=== PATIENT | male | born 1955 | race Two or more races ===

== ENCOUNTER 2018-07-29 14:30 | Inpatient (IN) | payer OTHER ==
[~2018-07-29] VITALS: Ht 167.6 cm; Wt 72.6 kg
--- NOTE | 2018-07-29 17:15 | NUR ---
RN NOTES RECEIVED PATIENT FROM [facility] VIA GURNEY ACCOMPANIED WITH 2 EMT. PATIENT TRANSFERRED TO BED. WEAKNESS NOTED ON AMBULATION. ALERT AND ORIENTED, ABLE TO MAKE NEEDS KNOW BUT UNDERSTAND AND SPEAKS ONLY IN URDU, EYES NOTED TO BE RED, WITH DISCHARGES.ON OXYGEN SUPPORT VIA NASAL CANNULA AT 4LPM, SATING AT 94-96%, NOTED WITH USE OF ACCESSORY MUSCLE, PATIENT WITH MOANING IN PAIN, COMPLAINTS OF HEADACHE, GIVEN TORADOL 15MG IVP PREVIOUSLY. VITAL SIGNS TAKEN AND NOTED FOLLOWS HR AT 102, TEMP AT 99, RR AT 23 SATS AT 94%, BLOOD PRESSURE ELEVATED- WILL RECHECK IN A BIT. IV ACCESS NOTED ON THE LAC AND R HAND BOTH G 20: IN PLACE AND INTACT, PATENT ON FLUSHING. SKIN ASSESSMENT DONE- SKIN INTACT. BELONGINGS ACCOUNTED AND KEPT. HISTORY OBTAINED THROUGH THE INTERPRETATION OF COURTNEY MANCINI. PATIENT AGREED ON GETTING PNEUMONIA ND FLU VACCINE WILL INFORM MD. PATIENT ORIENTED TO THE FLOOR AND THE USE OF CALL LIGHT, ENCOURAGE TO USE CALL LIGHT FOR ASSISTANCE, HOB ELEVATED FOR LUNG EXPANSION. SAFETY MEASURES INITIATED, BED LOW AND LOCKED, SRX2 RAISE, BED ALARM ON, CALL LIGHT WITHIN REACH, WILL MONITOR PATIENT, WAIT FOR ADMITTING ORDER AND AND CARRY OUT ADMITTING ORDERS
[2018-07-29] MEDS ORDERED: MAGNESIUM HYDROXIDE 30 ML UDC PO PRN (18:00)
[2018-07-29] MEDS ORDERED: MAG HYDROX/AL HYDROX/SIMETH 30 ML UDC PO PRN (18:00)
[2018-07-29] MEDS ORDERED: ZOLPIDEM TARTRATE 5 MG TABLET PO PRN (18:00)
[2018-07-29] MEDS ORDERED: ONDANSETRON HCL/PF 4 MG/2 ML VIAL IVP PRN (18:00)
[2018-07-29] MEDS ORDERED: Z GUARD REMEDY 2 OZ OINT TP PRN (18:00)
[2018-07-29] MEDS: IV NS 0.9% 1,000 ML IV PRN (18:14)
[2018-07-29] MEDS: ACETAMINOPHEN 325 MG TABLET PO PRN (18:14)
[2018-07-29] MEDS ORDERED: ALBUTEROL FS 2.5 MG/3 ML VIAL.NEB NEB PRN (19:00)
--- NOTE | 2018-07-29 19:00 | NUR ---
RN NOTES SEEN AND EXAMINED BY DR DUNHAM WITH ORDERS MADE. DR DUNHAM AWARE OF THE RESNESS OF THE EYES
[2018-07-29 19:04] LABS: CALCIUM, SERUM 8.2 mg/dL (8.5-10.1); POTASSIUM 3.8 mmol/L (3.5-5.1)
[2018-07-29] MEDS ORDERED: IBUP-1490 PO (19:13)
[2018-07-29] MEDS ORDERED: DOXA4TAB19 PO (19:13)
[2018-07-29] MEDS ORDERED: OMEP40CA37 PO (19:13)
--- NOTE | 2018-07-29 19:39 | NUR ---
RN NOTES ENDORSED FOR CONTINUITY OF CARE. NO SIGNIFICANT CHANGES WITHIN THE SHIFT. NOT ON ANY FORM OF DISTRESS. NO SOB NOTED AT THIS TIME. HOB KEPT ELEVATED. SAFETY MEASURES, ASPIRATION PRECAUTION KEPT IN PLACE. CALL LIGHT WITHIN REACH. Addendum: 07/29/18 at 1942 by YVONNE CORTEZ RN MRSA AND INFLUENZA SWAB ENDORSED TO INCOMING NURSE
--- NOTE | 2018-07-29 19:42 | NUR ---
STEAM BOX TENDER NOTE REPORT GIVEN BEDSIDE. PATIENT A/O X COOK ISLANDER SPEAKING. PATIENT ON 4L 02 NO S/S OF RESP DISTRESS, BUT COMPLAINS HE FEELS LIKE HE NEEDS TO COUGH SOMETHING UP. PATIENT DENIES CHEST PAIN. PATIENT AGGRESSIVELY TRYING TO COUGH, COUGH IS DRY NO S/S OF PRODUCTION. WHEEZING HEARD DURING AUSCULTATION. SPUTUM CULTURE CUP TAKEN AND EXPLAINED TO PATIENT IF HE COUGHS SOMETHING UP TO PUT IT IN THE CUP. SAFETY PRECAUTIONS IN PLACE. IV PATENT NO S/S OF INFECTION AND INFILTRATION. RN WILL CONTINUE TO MONITOR.
[2018-07-29] MEDS: CEFTRIAXONE 1 G in IV D5W 50 ML IV SCH (20:35)
[2018-07-29] MEDS: AZITHROMYCIN 250 MG TABLET PO SCH (20:35)
--- NOTE | 2018-07-29 23:50 | NUR ---
GO CART MECHANIC NOTE SPUTUM/ URINE/ MRSA CULTURE COLLECTED ORDERED.
[2018-07-30] VITALS: BP_SYST 135; BP_SYST 160; BP_DIAS 89; BP_DIAS 96
[2018-07-30] MEDS: HYDROCODONE/APAP 5/325MG 1 EACH TABLET PO PRN ×2 (01:07→20:43)
[2018-07-30 01:43] LABS: APPEARANCE,URINE CLEAR (CLEAR); BILIRUBIN,URINE 2+ (NEGATIVE); BLOOD, URINE 3+ Ery/uL (NEGATIVE); COLOR,URINE YELLOW (YELLOW); KETONES,URINE TRACE (NEGATIVE); LEUKOCYTE ESTERASE ,URINE NEGATIVE (NEGATIVE); NITRITE, URINE NEGATIVE (NEGATIVE); PROTEIN,URINE 1+ mg/dl (NEGATIVE); UGLUCOSE NEGATIVE (NEGATIVE); UROBILINOGEN,URINE >=8.0 EU/dL (0.2)
[2018-07-30 01:59] LABS: BACTERIA,URINE Few /HPF (None Seen); RBC,URINE TOO NUMEROUS TO COUN /HPF (0-2); SQUAMOUS EPITHELIAL CELL,UR Rare /HPF (None Seen)
[2018-07-30 04:00] VITALS: BP 142/92
[2018-07-30] MEDS: ACETAMINOPHEN 325 MG TABLET PO PRN ×2 (04:07→16:55)
[2018-07-30] MEDS: PANTOPRAZOLE 40 MG TABLET.DR PO SCH (06:52)
--- NOTE | 2018-07-30 07:15 | NUR ---
RN OPENING NOTE RECEIVED PATIENT AWAKE AND ALERT, PORTUGUESE SPEAKING ONLY. A/Ox3. ON TELE MONITOR SR WITH HR OF 68. HAS A LEFT AC #20 WITH FLUIDS RUNNING NS AT 75 ML/HR. BED ON LOW POSITION AND LOCKED, PATIENT TENDS TO SHAKE WHILE AMBULATING, PER NOC SHIFT NURSE. CALL LIGHT WITHIN REACH. WILL CONTINUE TO MONITOR
--- NOTE | 2018-07-30 07:16 | NUR ---
PARAPLANNER NOTE NOT ACUTE CHANGES THROUGHOUT THE SHIFT. PATIENT STABLE, DENIES CHEST PAIN. PATIENT SLEPT LAST 3 HOURS OF THE NIGHT. WILL ENDORSE TO AM POC FOR DAREN.
[2018-07-30] MEDS ORDERED: Medication Not On Formulary EA (Omeprazole 40 MG) PO SCH (07:30)
[2018-07-30 07:38] LABS: BASOPHILS % (AUTO) 0.4 % (0.0-2.0); EOSINOPHILS % (AUTO) 0.2 % (0.0-6.0); HEMATOCRIT 36 % (39-51); LYMPHOCYTES # (AUTO) 1.4 /CMM (0.8-4.8); LYMPHOCYTES % (AUTO) 13.7 % (20.0-44.0); MEAN CORPUSCULAR HGB CONC 34 g/dl (31.0-36.0); MEAN CORPUSCULAR VOLUME 91 fL (80-96); MONOCYTES # (AUTO) 1.2 /CMM (0.1-1.30); MONOCYTES % (AUTO) 11.6 % (2.0-12.0); NEUTROPHILS # (AUTO) 7.6 /CMM (1.8-8.9); NEUTROPHILS % (AUTO) 74.1 % (43.0-81.0); PLATELET COUNT (AUTO) 107 /CMM (150-450); WHITE BLOOD COUNT (AUTO) 10.3 K/uL (4.3-11.0)
[2018-07-30 07:54] LABS: CALCIUM, SERUM 8.3 mg/dL (8.5-10.1); CREATININE 0.7 mg/dL (0.6-1.3); POTASSIUM 3.8 mmol/L (3.5-5.1)
[2018-07-30 08:00] VITALS: BP 155/97
[2018-07-30] MEDS: IV NS 0.9% 1,000 ML IV PRN (09:35)
[2018-07-30 12:00] VITALS: BP 151/93
[2018-07-30] MEDS: ENOXAPARIN SODIUM 40 MG/0.4 ML DISP.SYRIN SQ SCH (12:15)
--- NOTE | 2018-07-30 13:00 | NUR ---
RN NOTE PATIENT IS COMPLAINING OF PAIN, HEADACHE, /. BUT DOES NOT WANT TO RECEIVE ANY PAIN MEDICATIONS, STATES HE CAN STILL HANDLE IT FOR NOW.
[2018-07-30 16:00] VITALS: BP_SYST 144; BP_DIAS 95; BP_DIAS 98
--- NOTE | 2018-07-30 16:55 | NUR ---
RN NOTE PATIENT HAS A SLIGHT FEVER OF 100.5F, TYLENOL GIVEN. WILL MONITOR CLOSELY
[2018-07-30] MEDS: LACTOBACILLUS RHAMNOSUS GG 1 EACH CAP.SPRINK PO SCH (18:16)
--- NOTE | 2018-07-30 19:18 | NUR ---
RN CLOSING NOTE PATIENT AWAKE AND ALERT, DANISH SPEAKING ONLY. STATES ALL HIS NEEDS THIS SHIFT. DID NOT ASK FOR ANY PAIN MEDS EVEN THOUGH HE WAS HAVING A HEADACHE. MORNING MEDS GIVEN. HAS A LEFT AC WITH IVF RUNNING NS AT 75 ML/HR. LOVENOX GIVEN WELL. NO COMPLAINS OF ANY PAIN AT THIS TIME OR ANY SOB. COUGHING THE WHOLE DAY, DRY COUGH DUE TO PNEUMONIA. ON 4L NC O2. ENDORSED TO NOC SHIFT RN.
[2018-07-30 20:00] VITALS: BP 136/90
--- NOTE | 2018-07-30 20:00 | NUR ---
RN OPENING NOTE RECEIVED PATIENT'S BEDSIDE REPORT FROM AM RN. PATIENT IS AWAKE AND ALERT, [place] SPEAKING ONLY. A/Ox3. ON TELE MONITOR SR WITH HR OF 95. HAS LEFT AC #20 IV LINE WITH FLUIDS RUNNING NS AT 75 ML/HR. PATIENT IS COMPLAINING OF LEFT LOWER LEG PAIN 8/10 AT THIS TIME. PATIENT IS COUGHING UP SMALL AMOUNT OF BLOOD, ALLIGATOR TRAPPER LUCINDA NOTIFIED AND PATIENT HAS BEEN MOVED TO ROOM [place] NEGATIVE PRESSURE ROOM FOR ISOLATION.NEW ORDERS ARE IN PLACE TO R/O TB. BED ON LOW POSITION AND LOCKED, CALL LIGHT IN REACH. WILL CONTINUE TO MONITOR PATIENT CLOSELY.
[2018-07-30] MEDS: AZITHROMYCIN 250 MG TABLET PO SCH (20:43)
[2018-07-30] MEDS: CEFTRIAXONE 1 G in IV D5W 50 ML IV SCH (20:44)
[2018-07-30] MEDS: DOXAZOSIN MESYLATE (4 MG) 4 MG TABLET PO SCH (22:39)
[2018-07-31] VITALS: BP 135/89
[2018-07-31] MEDS: HYDROCODONE/APAP 5/325MG 1 EACH TABLET PO PRN ×2 (03:50→23:23)
[2018-07-31] MEDS: IV NS 0.9% 1,000 ML IV PRN (03:56)
[2018-07-31 04:00] VITALS: BP 96/67
--- NOTE | 2018-07-31 07:00 | NUR ---
DIRECT MARKETING ANALYST OPENING NOTES RECEIVED PT LYING ON BED.PT IS IN ISOLATION FOR POSSIBLE TB,WITH NEGATIVE PRESSURE.ALERT/ORIENTED X3.ON TELE HR IS [address] 3L O2 VIA NC CONTINUOUSLY,TOLERATING WELL.NO SOB AND ACUTE DISTRESS NOTED.CAN AMBULATE WITH ASSISTANCE.IV LINE IS ON LEFT AC G20,SITE IS CLEAN,DRY AND INTACT.NO INFILTRATION NOTED.SAFETY IS MAINTAINED AT ALL TIMES.BED IS IN LOW POSITION AND LOCKED,CALL LIGHT IS WITHIN REACH.WILL CONTINUE TO MONITOR THE PT CLOSELY.
--- NOTE | 2018-07-31 07:02 | NUR ---
RN CLOSING NOTE PATIENT AWAKE AND ALERT, DOMINICAN SPEAKING ONLY. STATES ALL HIS NEEDS THIS SHIFT. LEFT AC IV LINE IS PATIENT AND INTACT WITH IVF RUNNING NS AT 75 ML/HR. NO COMPLAINS OF PAIN AT THIS TIME OR SOB. COUGHING THE WHOLE NIGHT, DRY COUGH DUE TO PNEUMONIA. ON 4L NC O2. ENDORSED TO AM SHIFT RN FOR AVIATION PROJECT ENGINEER.
[2018-07-31 08:00] VITALS: BP 128/70
[2018-07-31] MEDS: PANTOPRAZOLE 40 MG TABLET.DR PO SCH (08:29)
[2018-07-31] MEDS: LACTOBACILLUS RHAMNOSUS GG 1 EACH CAP.SPRINK PO SCH ×2 (09:31→16:50)
--- NOTE | 2018-07-31 11:00 | NUR ---
MS RN NOTES PLASTICS ENGINEER KENTRELL SAID OK TO GIVE LOVENOX 40MG SQ EVEN THOUGH THE PT HAS BLOOD TINGED SPUTUM AND PLATELET 107.NEW ORDERS NOTED AND CARRIED OU.
[2018-07-31] MEDS: ENOXAPARIN SODIUM 40 MG/0.4 ML DISP.SYRIN SQ SCH (11:02)
--- NOTE | 2018-07-31 11:15 | NUR ---
MS RN NOTES SPUTUM COLLECTED FOR AFB ,CALLED THE LAB TO MULTI CARE TECHNICIAN.
[2018-07-31 16:00] VITALS: BP 130/80
--- NOTE | 2018-07-31 18:55 | NUR ---
MS RN CLOSING NOTES PT IS SITTING ON BED,ALERT/ORIENTED X4.RESPIRATION IS EVEN AND NONLABORED.NO SIGNIFICANT CHANGES NOTED IN THE SHIFT,ENDORSED TO TRANSMISSION AND PROTECTION ENGINEER RN FOR DAREN AND FOLLOW UP WITH CT CHEST WITH CONTRAST.
[2018-07-31 20:00] VITALS: BP 110/91
[2018-07-31] MEDS: AZITHROMYCIN 250 MG TABLET PO SCH (21:55)
[2018-07-31] MEDS: CEFTRIAXONE 1 G in IV D5W 50 ML IV SCH (21:55)
[2018-07-31] MEDS: DOXAZOSIN MESYLATE (4 MG) 4 MG TABLET PO SCH (21:55)
--- NOTE | 2018-07-31 23:26 | NUR ---
RECEIVED ENDORSEMENT FOR CONTINUATION OF CARE BY RN PATIENT AWAKE, ALERT, ABLE TO VERBALIZE NEEDS, THAI SPEAKING ON CONTACT ISOLATION TO R/O TB, SKIN WARM TO TOUCH, OBSERVE GUARDING, GRIMACE AND MOANING, LEFT KNEE, NORCO WAS GIVEN, TO MONITOR FOR RELIEF, BED LOCKED, CALL LIGHTS WITHIN REACH, OFFERED AND PROVIDED FLUIDS, ON OXYGEN VIA NC, KEPT COMFORTABLE.
[2018-08-01] MEDS: IV NS 0.9% 1,000 ML IV PRN (00:50)
[2018-08-01 05:00] VITALS: BP 110/91
[2018-08-01] MEDS: HYDROCODONE/APAP 5/325MG 1 EACH TABLET PO PRN ×2 (05:48→18:12)
--- NOTE | 2018-08-01 05:51 | NUR ---
MS/RN NOTES PATIENT OBSERVED GUARDING AND GRIMACE, REPORTED PAIN SEVERE IN LOWER LEGS WILL MONITOR, ABLE TO SWALLOW PO MES, WILL MONITOR.
[2018-08-01 06:44] LABS: BASOPHILS # (AUTO) 0.1 /CMM (0.0-0.2); BASOPHILS % (AUTO) 0.7 % (0.0-2.0); EOSINOPHILS % (AUTO) 2.1 % (0.0-6.0); HEMATOCRIT 33 % (39-51); HEMOGLOBIN 11.1 g/dL (13.5-17.5); LYMPHOCYTES # (AUTO) 1.3 /CMM (0.8-4.8); MEAN CORPUSCULAR HGB CONC 34 g/dl (31.0-36.0); MEAN CORPUSCULAR VOLUME 91 fL (80-96); MONOCYTES # (AUTO) 0.8 /CMM (0.1-1.30); MONOCYTES % (AUTO) 11.7 % (2.0-12.0); NEUTROPHILS # (AUTO) 4.8 /CMM (1.8-8.9); NEUTROPHILS % (AUTO) 67.5 % (43.0-81.0); PLATELET COUNT (AUTO) 116 /CMM (150-450); RED BLOOD CELL COUNT(AUTO) 3.64 MIL/uL (4.5-6.0); WHITE BLOOD COUNT (AUTO) 7.1 K/uL (4.3-11.0)
--- NOTE | 2018-08-01 06:44 | NUR ---
101-1/MS/RN NOTES PATIENT AWAKE, SLEPT INTERMITENTLY, ON CONTACT ISOLATION , ABLE TO DO SELF CARE, MONITORED FOR SAFETY, ON PAIN MANAGEMENT MONITOIRNG, INSTRUCTED REGARDING USE OF NASAL CANULA FOR OXYGENATION FOR COMFORT MEASURE, BED LOCKED CALL LIGHTS WITHIN REACH, WILL MONITOR.
[2018-08-01 06:48] LABS: CALCIUM, SERUM 8.2 mg/dL (8.5-10.1); CREATININE 0.8 mg/dL (0.6-1.3); POTASSIUM 3.7 mmol/L (3.5-5.1)
--- NOTE | 2018-08-01 07:02 | NUR ---
RN OPENING NOTES RECEIVED PATIENT IN BED RESTING. A/OX3, ABLE TO MAKE NEEDS KNOWN. NOT IN ANY FORM OF DISTRESS, NO SOB. KEPT PATIENT SAFE AND COMFORTABLE. MAINTAINED ISOLATION PRECAUTIONS. IV ACCESS INTACT AND PATENT. BED IN LOW/LOCKED POSITION, SIDERAILS UPX2, CALL LIGHT IN REACH. WILL CONTINUE TO MONIOTR ACCORDINLGY
[2018-08-01] MEDS: PANTOPRAZOLE 40 MG TABLET.DR PO SCH (07:58)
[2018-08-01 08:00] VITALS: BP 105/79
[2018-08-01] MEDS: LACTOBACILLUS RHAMNOSUS GG 1 EACH CAP.SPRINK PO SCH ×2 (08:04→18:11)
--- NOTE | 2018-08-01 08:04 | NUR ---
AFB COLLECTED BY RT, CALLED LAB FOR LITIGATION MANAGER
[2018-08-01] MEDS: ACETAMINOPHEN 325 MG TABLET PO PRN (08:07)
[2018-08-01] MEDS: ENOXAPARIN SODIUM 40 MG/0.4 ML DISP.SYRIN SQ SCH (08:10)
[2018-08-01 16:00] VITALS: BP 140/79
--- NOTE | 2018-08-01 19:30 | NUR ---
RN CLOSING NOTES PATIENT IN STABLE CONDITION. ALL NEEDS ATTENDED AND PROVIDED. ASSISTED PATIENT WITH ADLS. KEPT PATIENT SAFE AND COMFORTABLE. BED IN LOW/LOCKED POSIITON, SIDERAILS UPX2, CALL LIGHT IN REACH. ENDORSED TO NIGHT RN FOR DAREN.
[2018-08-01 20:00] VITALS: BP 132/82
[2018-08-01] MEDS: AZITHROMYCIN 250 MG TABLET PO SCH (20:00)
[2018-08-01] MEDS: CEFTRIAXONE 1 G in IV D5W 50 ML IV SCH (20:45)
[2018-08-01 22:00] VITALS: BP 132/82
[2018-08-01] MEDS: DOXAZOSIN MESYLATE (4 MG) 4 MG TABLET PO SCH (22:00)
[2018-08-02] MEDS: HYDROCODONE/APAP 5/325MG 1 EACH TABLET PO PRN (02:50)
[2018-08-02 05:00] VITALS: BP 132/82
[2018-08-02] MEDS: PANTOPRAZOLE 40 MG TABLET.DR PO SCH (07:30)
--- NOTE | 2018-08-02 07:30 | NUR ---
RN AM SHIFT NOTE PATIENT IN ISOLATION FOR TB, YI SPEAKING, STAFF TRANSLATE NEED FOR ISOLATION PRECAUTIONS AND FOR MEDICATION WELL CT SCAN. PATIENT IS REFUSING IV, REFUSING MEDICATION AND REFUSING ANY TREATMENT. IMPORTANCE OF COMPLIANCE AND WHY THE TESTS NEED TO BE DONE ARE REINFORCED. MULTIPLE ATTEMPTS TO PASS AM MEDICATION INCLUDIG BLOOD THINNER WAS REFUSED. MEDICATION WAS DISCARDED AND DOCUMENTED. RULE OUT TB 3 AFB SMEARS HAVE BEEN DONE AND PENDING. DATES 18 AND 20. AWAITING RESULTS, MD AWARE. PATIENT COMPLAINED OF LEG PAIN, MD NOTIFED ULTRASOUND WILL BE ORDERED. VITALS STABLE, NO RESPIRATORY DISTRESS NOTED.
[2018-08-02 08:00] VITALS: BP 148/90
[2018-08-02] MEDS: ENOXAPARIN SODIUM 40 MG/0.4 ML DISP.SYRIN SQ SCH (08:54)
[2018-08-02] MEDS: LACTOBACILLUS RHAMNOSUS GG 1 EACH CAP.SPRINK PO SCH ×2 (08:54→17:06)
[2018-08-02] MEDS ORDERED: IOHEXOL-300 100 ML VIAL IV ONE ×2 (09:54→10:20)
[2018-08-02] MEDS ORDERED: IV NS 0.9% 250 ML IV ONE (09:54)
[2018-08-02] MEDS ORDERED: CT SWABBABLE VALVE TRANS SET 1 EA INFUS.SET MC ONE (09:54)
[2018-08-02 16:00] VITALS: BP 136/80
--- NOTE | 2018-08-02 18:46 | NUR ---
RN NOTE WAX PUMPER SAW PATIENT, 3 AFB CULTURES RESULT NEGATIVE. ORDER TO D/C ISOLATION FOR TB FROM WAX PUMPER THIS EVENING AT 1830.CONTINUE TO MONITOR PATIENT PER MD ORDERS
[2018-08-02] MEDS ORDERED: LEVOFLOXACIN (500MG) 500 MG TABLET PO SCH (20:00)
--- NOTE | 2018-08-02 20:00 | NUR ---
RN MS INITIAL NOTE RECEIVED PT CLEARED OFF TB ISOLATION, AFTER ALL 3 AFB RESULTS (-), PT AOX4, DENIES ANY PAIN, STILL WITH INTERMITTENT COUGH EPISODES, VS STABLE, AFEBRILE, INDEPENDENT WITH ADLS, ALL NEEDS ATTENDED, CL WNL, WILL CONT' TO MONITOR.
[2018-08-02] MEDS: DOXAZOSIN MESYLATE (4 MG) 4 MG TABLET PO SCH (21:09)
[2018-08-03 00:48] VITALS: BP 133/77
--- NOTE | 2018-08-03 06:30 | NUR ---
RN MS CLOSING NOTE ENDORSED PT CLEARED OFF TB ISOLATION, AFTER ALL 3 AFB RESULTS (-), PT AOX4, DENIES ANY PAIN, STILL WITH INTERMITTENT COUGH EPISODES, VS STABLE, AFEBRILE, INDEPENDENT WITH ADLS, ALL NEEDS ATTENDED, CL WNL, WILL CONT' TO MONITOR.
[2018-08-03 07:09] LABS: BASOPHILS % (AUTO) 0.6 % (0.0-2.0); EOSINOPHILS % (AUTO) 2.2 % (0.0-6.0); HEMATOCRIT 34 % (39-51); HEMOGLOBIN 11.2 g/dL (13.5-17.5); LYMPHOCYTES % (AUTO) 18.6 % (20.0-44.0); MEAN CORPUSCULAR HGB CONC 33 g/dl (31.0-36.0); MEAN CORPUSCULAR VOLUME 93 fL (80-96); MONOCYTES # (AUTO) 0.7 /CMM (0.1-1.30); MONOCYTES % (AUTO) 13.1 % (2.0-12.0); NEUTROPHILS # (AUTO) 3.4 /CMM (1.8-8.9); NEUTROPHILS % (AUTO) 65.5 % (43.0-81.0); PLATELET COUNT (AUTO) 138 /CMM (150-450); RED BLOOD CELL COUNT(AUTO) 3.66 MIL/uL (4.5-6.0); WHITE BLOOD COUNT (AUTO) 5.1 K/uL (4.3-11.0)
[2018-08-03 07:13] LABS: CALCIUM, SERUM 8.2 mg/dL (8.5-10.1); CREATININE 0.7 mg/dL (0.6-1.3); POTASSIUM 3.6 mmol/L (3.5-5.1)
[2018-08-03] MEDS: PANTOPRAZOLE 40 MG TABLET.DR PO SCH (07:53)
[2018-08-03 08:00] VITALS: BP 151/101
--- NOTE | 2018-08-03 08:05 | NUR ---
MS RN OPENING NOTE RECEIVED PATIENT FROM CORRECTIONS IDENTIFICATION TECHNICIAN RN. PATIENT IN BED, AWAKE, A/O X 4. NO S/S OF DISTRESS, NO SOB. PATIENT AMBULATORY,BRP, LAC #20 INTACT AND PATENT, V/S WNL. POSSIBLE D/C TODAY. wILL CONTINUE TO MONITOR.
[2018-08-03] MEDS: LACTOBACILLUS RHAMNOSUS GG 1 EACH CAP.SPRINK PO SCH (09:43)
[2018-08-03] MEDS: ENOXAPARIN SODIUM 40 MG/0.4 ML DISP.SYRIN SQ SCH (09:44)
[2018-08-03] MEDS ORDERED: LEVO500T75 PO (11:06)
[2018-08-03] MEDS ORDERED: PNEUMOCOCCAL 23-VAL P-SAC VAC 0.5 ML VIAL SQ ONE (14:30)
[2018-08-03 16:00] VITALS: BP 135/80
--- NOTE | 2018-08-03 19:53 | NUR ---
MS SOIL AND PLANT SCIENTIST NOTE PATIENT DISCHARGED PER MD ORDER. DISCHARGE INSTRUCTION GIVEN TO PATIENT BY RN. PATIENT A/O X 4 AND AMBULATORY. PATIENT ESCORTED TO EXIT BY ENTRY PROCESSOR VIA WHEELCHAIR WITH SON AT SIDE. BELONGINGS LIST COMPLETED AND FILED.
--- NOTE | 2018-08-03 19:53 | NUR ---
MS RN NOTE PATIENT REFUSED ORDERED X-RAY FOR HIS LEG.
== END 2018-08-03 19:00 | disposition home or self-care (01) | DRG 137 ==
LOC: TELE1 17:08 → MEDSG1 07-31 11:21
PROVIDERS: ADMIT Internal Medicine; ATTEND Nurse Practitioner Acute Care
DX: J15.6 Pneumonia due to other Gram-negative bacteria (principal); J96.01 Acute respiratory failure with hypoxia; E78.5 Hyperlipidemia, unspecified; D64.9 Anemia, unspecified; G89.29 Other chronic pain; B35.3 Tinea pedis; K74.60 Unspecified cirrhosis of liver; N40.0 Benign prostatic hyperplasia without lower urinary tract symptoms; M54.5 Low back pain; L60.3 Nail dystrophy; J40 Bronchitis, not specified as acute or chronic; M79.18 Myalgia, other site
CPT/HCPCS: 36415; 71045-TC; 71270-TC; 80048-TC; 80061-TC; 81000-TC; 83735-TC; 84100-TC; 85025-TC; 87040-TC; 87070-TC; 87081-TC; 87086-TC; 87116; 87206; 87400; 90732; 93307-TC; 93971-TC; G0378; J0696; J1650; J7030; J7050; J7060; Q2036; Q9967